=== PATIENT | female | born 1955 | race Caucasian/White ===

== ENCOUNTER → 2017-01-26 | Outpatient (CLI) | payer OTHER ==
[~2017-01-26] MED LIST: HYDROCORTISONE30 G3 TP
== END | disposition home or self-care (01) ==
LOC: AMB 10:33
PROC: 0HB1XZZ Excision of Face Skin, External Approach (ICD-10-PCS; principal; 2017-01-26)
DX: L72.3 Sebaceous cyst (principal)
CPT/HCPCS: 88304